=== PATIENT | male | born 1995 | race Two or more races ===

== ENCOUNTER 2022-07-01 11:34 | Emergency (ER) | payer SELFPAY ==
[~2022-07-01] VITALS: Ht 167.6 cm; Wt 63.6 kg
[2022-07-01 13:07] LABS: BASOPHILS % (AUTO) 0.7 % (0.0-2.0); EOSINOPHILS % (AUTO) 8.7 % (1.0-6.0); HEMATOCRIT 42.6 % (41-53); HEMOGLOBIN 13.9 g/dL (13.5-17.5); LYMPHOCYTES # (AUTO) 0.9 K/uL (1.0-4.8); LYMPHOCYTES % (AUTO) 4.9 % (22.0-44.0); MEAN CORPUSCULAR HEMOGLOBIN 30.6 pg (26.0-34.0); MEAN CORPUSCULAR HGB CONC 32.6 G/dL (31.0-37.0); MEAN CORPUSCULAR VOLUME 94 fL (80-100); MONOCYTES # (AUTO) 1.2 K/uL (0.1-1.0); MONOCYTES % (AUTO) 6.5 % (2.0-9.0); NEUTROPHILS # (AUTO) 14.1 K/uL (1.8-7.7); NEUTROPHILS % (AUTO) 79.2 % (40.0-70.0); PLATELET COUNT (AUTO) 351 K/uL (150-450); RED BLOOD CELL COUNT(AUTO) 4.54 MIL/uL (4.50-5.90)
[2022-07-01 13:17] LABS: ANION GAP 7 mmol/L (8-16); CARBON DIOXIDE 29 mmol/L (22-29); CHLORIDE 102 mmol/L (98-107); CREATININE 1.29 mg/dL (0.60-1.30); GLOMERULAR FILTR. RATE CALC > 60 mL/min (>60); GLUCOSE,RANDOM 97 mg/dL (70-110); SODIUM SERUM 138 mmol/L (136-145); UREA NITROGEN, BLOOD 23 mg/dL (7-18)
[2022-07-01 13:24] LABS: B-TYPE NATRIURETIC PEPTIDE 7 pg/mL (0-100)
[2022-07-01 13:44] LABS: ALANINE AMINOTRANSFERASE 83 U/L (12-78); ALBUMIN 3.5 g/dL (3.4-5.0); ALKALINE PHOSPHATASE 111 U/L (46-116); ASPARTATE AMINOTRANSFERASE 43 U/L (15-37); BILIRUBIN,TOTAL 0.2 mg/dL (0.1-1.0); CREATINE KINASE, TOTAL ONLY 418 U/L (39-308); TOTAL PROTEIN, SERUM 7.1 g/dL (6.4-8.2)
[2022-07-01 16:43] VITALS: BP 143/90
== END 2022-07-01 17:07 | disposition home or self-care (01) ==
LOC: EMS 11:38
DX: T40.601A Poisoning by unspecified narcotics, accidental (unintentional), initial encounter (principal); R53.83 Other fatigue; R09.02 Hypoxemia; Y92.89 Other specified places as the place of occurrence of the external cause
CPT/HCPCS: 99291; 70450; 80053; 82550; 83880; 84484; 85025; 36415; 71045; 72125; 93005; G0480